=== PATIENT | female | born 1995 | race Two or more races ===

== ENCOUNTER 2024-05-21 16:24 | Emergency (ER) | payer OTHER ==
[~2024-05-21] VITALS: Ht 160 cm; Wt 57.2 kg
[2024-05-21] MEDS ORDERED: 0.9 % SODIUM CHLORIDE 1,000 ML IV STA (19:05)
[2024-05-21 20:58] LABS: HEMOGLOBIN 9.8 g/dL (12.0-15.00); MEAN CELL VOLUME 74.4 fL (80.00-100.00); MEAN CORPUSCULAR HEMOGLOBIN 23.6 pg (27.00-32.0); MEAN CORPUSCULAR HGB CONC 31.7 g/dl (32.0-36.0); PLATELET COUNT 302 K/uL (150-450); RED BLOOD COUNT 4.17 M/uL (4.00-6.00); RED CELL DISTRIBUTION WIDTH 14.1 % (11.5-14.5)
[2024-05-21 21:15] LABS: CALCIUM 8.7 mg/dL (8.5-10.1); CREATININE SERUM 0.76 mg/dL (0.55-1.02); GFR 89.97; POTASSIUM 4.41 mEq/L (3.5-5.1)
[2024-05-21] MEDS ORDERED: ACETAMINOPHEN 500 MG GEL..CAP PO ONE (23:17)
== END 2024-05-21 23:29 | disposition home or self-care (01) ==
LOC: ER 16:27
DX: N93.8 Other specified abnormal uterine and vaginal bleeding (principal); Z88.6 Allergy status to analgesic agent